=== PATIENT | male | born 1995 | race Caucasian/White ===

== ENCOUNTER 2018-08-12 11:12 | Emergency (ER) | payer SELFPAY ==
[2018-08-12 11:18] VITALS: BP 116/63
--- NOTE | 2018-08-12 11:55 | ER Document Report ---
HPI - HPI Pain Level: 5 Notes: Patient is a 22-year-old male with no significant past medical history aside from GERD who presents to the ED complaining of a fissure or ulceration inside of his left mouth over the last several days that he noticed bubbled up yesterday and drained. Patient states that it does hurt to eat because of that area. Patient states that when he does eat he has acid reflux that flares up on him. Patient states he is not on medications for acid reflux currently, but would like to be back on them. Patient states that his primary concern today is his mouth. He is otherwise urinating normally and having normal bowel movements. No other concerns or complaints. Denies any headache, fever, head injury, neck pain, URI, sore throat, chest pain, palpitations, syncope, cough, shortness of breath, wheeze, dyspnea, abdominal pain, nausea/vomiting/diarrhea, urinary retention, dysuria, hematuria, or rash. - ROS Systems Reviewed and Negative: Yes All other systems reviewed and negative Past Medical History - Social History Smoking Status: Current Every Day Smoker Family History: Reviewed & Not Pertinent Psychiatric Medical History: Reports: Hx Attention Deficit Hyperactivity Disorder, Hx Bipolar Disorder - Immunizations Immunizations up to date: Yes Hx Diphtheria, Pertussis, Tetanus Vaccination: Yes Vertical Provider Document - CONSTITUTIONAL Agree With Documented VS: Yes Notes: PHYSICAL EXAMINATION: GENERAL: Well-appearing, well-nourished and in no acute distress. HEAD: Atraumatic, normocephalic. EYES: Pupils equal round and reactive to light, extraocular movements intact, sclera anicteric, conjunctiva are normal. ENT: EAC clear b/l. TM's intact b/l without erythema, fluid, or perforation. Nares patent and without discharge. oropharynx clear without exudates. No tonsilar hypertrophy or erythema. Moist mucous membranes. No sinus tenderness. Uvula midline. No palatine shift. No tongue protrusion. No airway compromise. Mouth: Poor dentition. + either small fissure of aphthous ulcer noted to the posterior left buccal mucosal area. No obvious abscess or discharge noted. No facial swelling. No dental tenderness. NECK: Normal range of motion, supple without lymphadenopathy. No rigidity/ meningismus. LUNGS: Breath sounds clear to auscultation bilaterally and equal. No wheezes rales or rhonchi. HEART: Regular rate and rhythm without murmurs, rubs, gallops. Abdomen: Soft, nontender throughout, nondistended. Bowel sounds present. NEUROLOGICAL: Cranial nerves grossly intact. Normal speech, normal gait. Normal sensory, motor exams PSYCH: Normal mood, normal affect. SKIN: Warm, Dry, normal turgor, no rashes or lesions noted. Course - Re-evaluation Re-evalutation: 08/12/18 11:53 Patient is an afebrile, well-hydrated, 22-year-old male who presents to the ED with mouth fissure/aphthous ulcer. Vitals are acceptable without any significant tachycardia, tachypnea, or hypoxia. PE is otherwise unremarkable. Patient's abdomen is soft and nontender. His lungs are clear to auscultation bilaterally. Patient is nontoxic-appearing and is tolerating p.o. without any difficulties. Viscous lidocaine dispensed today. No labs or imaging warranted at this time. Low suspicion for any meningitis, sepsis, peritonsillar/ pharyngeal abscess, respiratory compromise, Gregorio's, temporal arteritis, or other emergent systemic condition at this time. Patient is aware this condition can change from initial presentation and he needs to monitor symptoms closely. I will send him home with a prescription for clindamycin, Carafate, omeprazole. He may begin the antibiotic with ongoing/worsening symptoms over the next 2-3 days. Conservative measures otherwise for symptoms. Recheck with your PCM in 3-5 days . Return to the ED with any worsening/concerning symptoms otherwise as reviewed in discharge. Patient is in agreement. - Vital Signs Vital signs: Temp Pulse Resp BP Pulse Ox 98.5 F 81 16 116/63 97 08/12/18 11:16 08/12/18 11:16 08/12/18 11:16 08/12/18 11:16 08/12/18 11:16 Discharge - Discharge Clinical Impression: Aphthous ulcer GERD (gastroesophageal reflux disease) Qualifiers: Esophagitis presence: esophagitis presence not specified Qualified Code(s): K21.9 - Gastro-esophageal reflux disease without esophagitis Condition: Stable Disposition: HOME, SELF-CARE Instructions: Reflux Disease (GERD) ([facility]) Additional Instructions: [place] and floss twice daily Maintain fluid intake Take antibiotics as directed Mouthwash, salt water gargles, peroxide rinse as needed Tylenol/ibuprofen as needed Recheck with PCM in 3-5 days Return to the ED with any worsening symptoms and/or development of fever, headache, facial swelling, swelling of lips/tongue/throat, trouble swallowing, drooling, hoarseness, neck pain/stiffness, chest pain, palpitations, syncope, shortness of breath, trouble breathing, abdominal pain, n/v/d, numbness/tingling , or other worsening symptoms that are concerning to you. Prescriptions: Clindamycin HCl [Cleocin 300 mg Capsule] 300 mg PO TID #30 capsule Omeprazole 20 mg PO DAILY #30 tablet. Sucralfate [Carafate] 1 gm PO QID PRN #420 ml PRN Reason: Forms: Smoking Cessation Education Referrals: [facility] [Provider Group] - Follow up as needed [facility] [Provider Group] - Follow up as needed
[2018-08-12] MEDS ORDERED: LIDOCAINE 2% VISCOUS SOLN 20 ML UDCUP PO ONE (11:57)
== END 2018-08-12 12:05 | disposition home or self-care (01) ==
LOC: ER 11:12
DX: K12.0 Recurrent oral aphthae (principal); K21.9 Gastro-esophageal reflux disease without esophagitis; F17.200 Nicotine dependence, unspecified, uncomplicated
CPT/HCPCS: 99282; J3490

== ENCOUNTER 2020-10-15 15:54 | Emergency (ER) | payer MEDICAID, OTHER ==
[2020-10-15] MEDS ORDERED: ACETAMINOPHEN 325 MG TABLET PO ONE (16:32)
--- NOTE | 2020-10-15 16:36 | ER Document Report ---
ED Medical Screen (RME) - General Chief Complaint: Fall Stated Complaint: FALL/RIGHT HAND,FINGERS,SHOULDER PAIN Time Seen by Provider: 10/15/20 16:25 - HPI Notes: 10/15/20 16:32 25-year-old male states he was putting on shingles on a roof yesterday, reports he fell story and a half onto the ground, injuring his right shoulder, his right wrist and right hand. He thinks he didn't lose consciousness, he is having some neck pain. Did not get checked out yesterday, thought it would get better with time. Patient states that his pain is getting worse, has not tried any [id number] medications. Denies any open wounds or drainage. Denies being on any blood thinners. Patient reports he has fallen 5 times from a roof, states this is the first time he has been checked out. Denies any neuro changes. Patient denies having a headache at this time. Denies any chest pain, shortness of breath, nausea vomiting or diarrhea. I have greeted and performed a rapid initial assessment of this patient. A comprehensive ED assessment and evaluation of the patient, analysis of test results and completion of the medical decision making process will be conducted by additional ED providers. PHYSICAL EXAMINATION: GENERAL: Well-appearing, well-nourished and in no acute distress. HEAD: Atraumatic, normocephalic. EYES: Pupils equal round extraocular movements intact, conjunctiva are normal. NECK: C-spine tenderness on palpation from C3-C6, right paraspinal tenderness CV: s1, s2 regular LUNGS: No respiratory distress Musculoskeletal: Normal range of motion. Noted right wrist pain with flexion, extension, inversion, eversion of wrist. Noted right fifth distal aspect of phalanx with dislocation d Unable to aviation safety officer on the right due to pain. Snuffbox tenderness positive on right. Tenderness to right shoulder on palpation, unable to abduct flex or extend without pain NEUROLOGICAL: Normal speech, normal gait. SKIN: Warm, Dry, normal turgor, no rashes or lesions noted. The patient was evaluated during a global COVID-19 pandemic and that diagnosis was suspected/considered upon their initial presentation. Their evaluation, treatment and testing was consistent with current guidelines for patients who present with complaints or symptoms and may be related to COVID-19. - Related Data Allergies/Adverse Reactions: hydrocodone bitartrate [From Vicodin] Allergy (Verified 08/12/18 11:13) Hives oxycodone HCl [From Percocet] Allergy (Verified 08/12/18 11:13) Hives propoxyphene napsylate [From Darvocet-N 100] Allergy (Verified 08/12/18 11:13) Hives Past Medical History - Social History Frequency of alcohol use: Occasional Drug Abuse: None Renal/ Medical History: Denies: Hx Peritoneal Dialysis Psychiatric Medical History: Reports: Hx Attention Deficit Hyperactivity Disorder, Hx Bipolar Disorder - Immunizations Immunizations up to date: Yes Hx Diphtheria, Pertussis, Tetanus Vaccination: Yes Physical Exam - Vital signs Vitals: Temp Pulse Resp BP Pulse Ox 98.2 F 71 20 115/62 98 10/15/20 16:07 10/15/20 16:07 10/15/20 16:07 10/15/20 16:07 10/15/20 16:07 Course - Vital Signs Vital signs: Temp Pulse Resp BP Pulse Ox 98.2 F 71 20 115/62 98 10/15/20 16:07 10/15/20 16:07 10/15/20 16:07 10/15/20 16:07 10/15/20 16:07
--- NOTE | 2020-10-15 17:32 | RADIOLOGY REPORT (SQ) ---
EXAM DESCRIPTION: CT HEAD WITHOUT IMAGES COMPLETED DATE/TIME: 10/15/2020 2:06 pm REASON FOR STUDY: fell from a 1.5 stories from a roof,head/neck/hand COMPARISON: None. TECHNIQUE: Axial images acquired through the brain without intravenous contrast. Images reviewed wi th bone, brain and subdural windows. Additional sagittal and coronal reconstructions were generated. Images stored on PACS. All CT scanners at this facility use dose modulation, iterative reconstruction, and/or weight based d osing when appropriate to reduce radiation dose to as low as reasonably achievable (ALARA). [facility]: Dose Right [facility]: CareDose [facility]: Dose Right [facility]: Teradose 4D [facility]: Smart [employer] RADIATION DOSE: CT Rad equipment meets quality standard of care and radiation dose reduction techniq ues were employed. CTDIvol: 53.2 mGy. DLP: 937 mGy-cm. mGy. LIMITATIONS: None. FINDINGS: VENTRICLES: Normal size and contour. CEREBRUM: No masses. No hemorrhage. No midline shift. No evidence for acute infarction. Normal gra y/white matter differentiation. No areas of low density in the white matter. CEREBELLUM: No masses. No hemorrhage. No alteration of density. No evidence for acute infarction. EXTRAAXIAL SPACES: No fluid collections. No masses. ORBITS AND GLOBE: No intra- or extraconal masses. Normal contour of globe without masses. CALVARIUM: No fracture. PARANASAL SINUSES: Mild mucosal thickening in the right frontal sinus. SOFT TISSUES: No mass or hematoma. OTHER: No other significant finding. IMPRESSION: 1. No acute intracranial abnormality. 2. Mild right frontal sinus mucosal thickening. EVIDENCE OF ACUTE STROKE: NO. COMMENT: Quality ID # [id number]: Final reports with documentation of one or more dose reduction techniques (e.g., Automated exposure control, adjustment of the mA and/or kV according to patient size, use of iterative reconstruction technique) TECHNICAL DOCUMENTATION: JOB ID: [id number] 2010 [employer]- All Rights Reserved Reading location - IP/workstation name: [email or web address]
--- NOTE | 2020-10-15 17:34 | RADIOLOGY REPORT (SQ) ---
EXAM DESCRIPTION: CT CERVICAL SPINE WITHOUT IMAGES COMPLETED DATE/TIME: 10/15/2020 2:06 pm REASON FOR STUDY: fell from a 1.5 stories from a roof,head/neck/hand COMPARISON: None. TECHNIQUE: Axial images acquired through the cervical spine without intravenous contrast. Images re viewed with lung, soft tissue and bone windows. Reconstructed coronal and sagittal MPR images review ed. Images stored on PACS. All CT scanners at this facility use dose modulation, iterative reconstruction, and/or weight based d osing when appropriate to reduce radiation dose to as low as reasonably achievable (ALARA). [facility]: Dose Right [facility]: CareDose [facility]: Dose Right [facility]: Teradose 4D [facility]: [employer] RADIATION DOSE: CT Rad equipment meets quality standard of care and radiation dose reduction techniq ues were employed. CTDIvol: 17.1 mGy. DLP: 358 mGy-cm. mGy. LIMITATIONS: None. FINDINGS: ALIGNMENT: Anatomic. MINERALIZATION: Normal. VERTEBRAL BODIES: No fractures or dislocation. DISCS: No significant disc disease. FACETS, LATERAL MASSES, POSTERIOR ELEMENTS: No fractures. No dislocation. No acute findings. HARDWARE: None in the spine. VISUALIZED RIBS: No fractures. LUNG APICES AND SOFT TISSUES: No significant or acute findings. OTHER: No other significant finding. IMPRESSION: NO ACUTE OR SIGNIFICANT FINDINGS IN THE CERVICAL SPINE. TECHNICAL DOCUMENTATION: JOB ID: [id number] Quality ID # [id number]: Final reports with documentation of one or more dose reduction techniques (e.g., Au tomated exposure control, adjustment of the mA and/or kV according to patient size, use of iterative reconstruction technique) 2010 [employer]- All Rights Reserved Reading location - IP/workstation name: [email or web address]
--- NOTE | 2020-10-15 17:56 | RADIOLOGY REPORT (SQ) ---
EXAM DESCRIPTION: HAND RIGHT 3 VIEWS; WRIST RIGHT 3 VIEWS IMAGES COMPLETED DATE/TIME: 10/15/2020 1:55 pm REASON FOR STUDY: fell from a 1.5 stories from a roof,head/neck/hand COMPARISON: None. EXAM PARAMETERS: NUMBER OF VIEWS: Three views. TECHNIQUE: AP, lateral and oblique radiographic images acquired of the right hand and right wrist. LIMITATIONS: None. FINDINGS: MINERALIZATION: Normal. BONES: No acute fracture or dislocation. No worrisome bone lesions. JOINTS: No effusions. SOFT TISSUES: No soft tissue swelling. No foreign body. OTHER: No other significant finding. IMPRESSION: No acute radiographic abnormality of the right wrist and right hand. TECHNICAL DOCUMENTATION: JOB ID: [id number] 2010 [employer]- All Rights Reserved Reading location - IP/workstation name: [email or web address]
--- NOTE | 2020-10-15 17:56 | RADIOLOGY REPORT (SQ) ---
EXAM DESCRIPTION: HAND RIGHT 3 VIEWS; WRIST RIGHT 3 VIEWS IMAGES COMPLETED DATE/TIME: 10/15/2020 1:55 pm REASON FOR STUDY: fell from a 1.5 stories from a roof,head/neck/hand COMPARISON: None. EXAM PARAMETERS: NUMBER OF VIEWS: Three views. TECHNIQUE: AP, lateral and oblique radiographic images acquired of the right hand and right wrist. LIMITATIONS: None. FINDINGS: MINERALIZATION: Normal. BONES: No acute fracture or dislocation. No worrisome bone lesions. JOINTS: No effusions. SOFT TISSUES: No soft tissue swelling. No foreign body. OTHER: No other significant finding. IMPRESSION: No acute radiographic abnormality of the right wrist and right hand. TECHNICAL DOCUMENTATION: JOB ID: [id number] 2010 [employer]- All Rights Reserved Reading location - IP/workstation name: [email or web address]
--- NOTE | 2020-10-15 17:59 | RADIOLOGY REPORT (SQ) ---
EXAM DESCRIPTION: SHOULDER RIGHT 2 OR MORE VIEWS IMAGES COMPLETED DATE/TIME: 10/15/2020 1:55 pm REASON FOR STUDY: fell from a 1.5 stories from a roof,head/neck/hand COMPARISON: None. NUMBER OF VIEWS: Three views. TECHNIQUE: Internal rotation, external rotation, and Y view images acquired of the right shoulder. LIMITATIONS: None. FINDINGS: MINERALIZATION: Normal. BONES: No acute fracture. No worrisome bone lesions. JOINTS: No dislocation. VISUALIZED LUNGS AND RIBS: No pneumothorax. No rib fracture. SOFT TISSUES: No radiopaque foreign body. OTHER: No other significant finding. IMPRESSION: NEGATIVE STUDY OF THE RIGHT SHOULDER. NO RADIOGRAPHIC EVIDENCE OF ACUTE INJURY. TECHNICAL DOCUMENTATION: JOB ID: [id number] 2010 [employer]- All Rights Reserved Reading location - IP/workstation name: [email or web address]
--- NOTE | 2020-10-15 19:32 | ER Document Report ---
ED Fall - General Chief Complaint: Fall Stated Complaint: FALL/RIGHT HAND,FINGERS,SHOULDER PAIN Time Seen by Provider: 10/15/20 16:25 - HPI Notes: Chief Complaint: Fall Historian: History obtained from patient HPI: This is a 25-year-old male presents to the ED after a fall off of a one- story roof yesterday. 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 Landed on right shoulder area using his right hand to brace himself. Did strike his head on the ground but no loss of consciousness. He was ambulatory after the fall. He complains of mild diffuse neck pain. Pain does not radiate down the arms. Denies numbness to bilateral upper extremities. His main complaint is right thumb pain and swelling. Also complains of some pain to the right fifth digit DIP. He also complains of some mild shoulder pain. No treatments tried. Denies severe headache, vision changes, confusion nausea vomiting. No chest pain, shortness of breath, abdominal pain, pelvic pain, back pain. ROS: Constitutional: no fevers. HEENT: no CRISTOBAL, sore throat, or vision changes. CV: no chest pain or palpitations. Resp: no cough or SOB. GI: no abdominal pain, or n/v/d. : no dysuria, hematuria, or incont. MSK: Cervical pain. Right shoulder pain. Right thumb pain. Right pinky finger pain. Skin: no rashes or itching. Neuro: no seizures, weakness, numbness, or confusion. Hematological: no ecchymosis or easy bleeding. Endocrine: no polyuria/polydipsia, no heat/cold intolerance. Psych: no SI/HI, AH/VH or memory loss. PMHx: Reviewed and agree as charted by RN. PSHx: Reviewed and agree as charted by RN. SOCHx: Reviewed and agree as charted by RN. FHX: No significant familial comorbid conditions directly related to patient complaint Current Medications: Reviewed and agree with the patient medications as charted by the RN. Allergies: Reviewed and agree with the listed allergies as charted by the RN Physical Exam: Vitals: Reviewed in chart as documented by RN. General: Alert and in NAD. Head: Normocephalic; atraumatic. Negative hemotympanums bilaterally. No otorrhea, rhinorrhea. No gross facial or scalp hematomas, abrasions, step-off. Face and scalp nontender to palpation.. Eyes: PERRLA, Conjunctivae clear sclerae non-icteric bilat ENT: no soft palate swelling or uvular deviation Neck: trachea midline, no unilateral swelling/tenderness/lymphadenopathy CV: RRR, no M/R/G; symmetric distal pulses Resp: respirations even and unlabored, CTA bilat. GI: abd soft and nondistended. NTTP. normal BS. no masses/HSM. no CVAT bilat MSK: Cervicaldiffuse mild tenderness. No midline step-off or deformity. Able to rotate beyond 45 degrees bilateral. Sensation intact to bilateral upper extremities distally. Strength 5 out of 5 and equal bilateral. Radial pulse 2+. Right shoulderAC, clavicle, sits muscles, shoulder joint all nontender to palpation. No swelling, erythema or deformity. Mild increased pain with range of motion especially overhead movement. Patient is able to abduct beyond 90 degrees, negative drop arm test. No obvious AC separation, no tenting, pallor/ischemia, open wounds. Full range of motion of right elbow and wrist, no swelling, tenderness, deformity. Right thumbmild tenderness over proximal phalanx without deformity. Trapezium and scaphoid area with mild swelling and ecchymosis, tender to palpation. Patient will stump in a neutral position and does not tolerate any range of motion. Patient refuses passive range of motion as well. Unable to assess thumb ligaments. Mild tenderness over the DIP of the fifth digit. Mild swelling. DIP is held in mild flexion pain with passive extension. Patient refuses to attempt to range joint due to pain. But no obvious deformity. Cap refill less than 2 seconds and sensation intact to all digits. Radial pulse 2+. No midline T-spine or L-spine tenderness or deformity. Straight leg raise negative bilateral. No saddle anesthesia. Sensation intact to bilateral lower extremities. Strength 5 out of 5 and equal to BLE. Pedal pulses 2+. No pelvic tenderness or deformity. Skin: warm, moist, good turgor. no rash/lesions Neuro: Alert and oriented X 4. following CN 2-12 intact. no unilateral weakness/numbness Psych: No SI/HI or AH/VH. ED Results: Medical Decision-Making: Medical Decision-making/Differential Diagnosis: Consider various etiologies including but not limited to ICH, skull fracture, mild TBI, closed head injury, cervical strain, disc herniation, compression fracture, cervical fracture, ligament injury, AC separation, rotator cuff injury, clavicle fracture, skin/soft tissue structure injury, MSK injury, strain/sprain, fracture, dislocation, bursitis, tendonitis, contusion, ect Plan-triage ordered CT head and C-spine, shoulder x-ra, right hand x-ray, right wrist x-ray. Patient clysed pain control in the ED. I reviewed imaging CT scans were negative for any acute findings. X-rays of the shoulder, hand, wrist were all negative as well. Due to patient's point tenderness, swelling, ecchymosis over his scaphoid/trapezium area and inability to range thumb due to pain I will place him in a thumb spica splint due to concern for possible occult scaphoid fracture or ligament injury to thumb. We will also place a finger splint on the right fifth digit. Treat with rice, Tylenol, NSAIDs. Orthopedics referral for follow-up of his right thumb and hand pain. Return factors discussed. PCP follow-up in the next few days for recheck. This course of action was discussed with the patient and/or family. They were amenable to this, verbalized understanding, and were without further questions. Diagnosis:fall, cervical strain, closed head injury, thumb sprain- right, 5th digit sprain- right. shoulder sprain- right. Condition: stable Disposition: discharge - Related data Allergies/Adverse Reactions: hydrocodone bitartrate [From Vicodin] Allergy (Verified 08/12/18 11:13) Hives oxycodone HCl [From Percocet] Allergy (Verified 08/12/18 11:13) Hives propoxyphene napsylate [From Darvocet-N 100] Allergy (Verified 08/12/18 11:13) Hives Past Medical History - Social History Smoking Status: Current Every Day Smoker Frequency of alcohol use: Occasional Drug Abuse: None Family History: Reviewed & Not Pertinent Renal/ Medical History: Denies: Hx Peritoneal Dialysis Psychiatric Medical History: Reports: Hx Attention Deficit Hyperactivity Disorder, Hx Bipolar Disorder - Immunizations Immunizations up to date: Yes Hx Diphtheria, Pertussis, Tetanus Vaccination: Yes Physical Exam - Vital signs Vitals: Temp Pulse Resp BP Pulse Ox 98.2 F 71 20 115/62 98 10/15/20 16:07 10/15/20 16:07 10/15/20 16:07 10/15/20 16:07 10/15/20 16:07 Course - Vital Signs Vital signs: Temp Pulse Resp BP Pulse Ox 98.2 F 71 20 115/62 98 10/15/20 16:07 10/15/20 16:07 10/15/20 16:07 10/15/20 16:07 10/15/20 16:07 - Laboratory Results Critical Laboratory Results Reviewed: No Critical Results - Radiology Results Critical Radiology Results Reviewed: No Critical Results Procedures - Immobilization Right Thumb Pre-Proc Neuro Vasc Exam: Normal Immobilizer type: Thumb spica Performed by: PCT Post-Proc Neuro Vasc Exam: Normal Right 5th digit Time completed: 19:34 Pre-Proc Neuro Vasc Exam: Normal Immobilizer type: Finger splint (Static) Performed by: PCT Post-Proc Neuro Vasc Exam: Normal Alignment checked and good: Yes Discharge - Discharge Clinical Impression: Other sprain of right shoulder joint, initial encounter, Other sprain of right thumb, initial encounter Fall Qualifiers: Encounter type: initial encounter Qualified Code(s): W19.XXXA - Unspecified fall, initial encounter Cervical strain, acute Qualifiers: Encounter type: initial encounter Qualified Code(s): S16.1XXA - Strain of muscle, fascia and tendon at neck level, initial encounter Sprain of right little finger Qualifiers: Encounter type: initial encounter Sprain of finger site: interphalangeal joint Qualified Code(s): S63.636A - Sprain of interphalangeal joint of right little finger, initial encounter Closed head injury Qualifiers: Encounter type: initial encounter Qualified Code(s): S09.90XA - Unspecified injury of head, initial encounter Condition: Stable Disposition: HOME, SELF-CARE Instructions: Head Injury Precautions ([facility]), Sprained Thumb ([facility]) Additional Instructions: call and schedule appointment with orthopedics- they need to further evaluate your thumb/hand injury as you may have serious ligament injuries. wear splint at all times. no heavy lifting w/ thumb. rest, ice, and elevate injured areas. follow up with your doctor in the next couple days for a recheck. return to the ER if your condition worsens. take tylenol and motrin for pain. Referrals: SALUD AUGUSTIN MD [ASSOCIATE] - Follow up as needed
[2020-10-15] MEDS ORDERED: HYDROCODONE/ACETAMINOPHEN 5-325 MG (6 TAB/ER DISP) PO PRN (20:15)
[2020-10-15 20:34] VITALS: BP 118/72
== END 2020-10-15 20:29 | disposition home or self-care (01) ==
LOC: ER 15:54
DX: S63.601A Unspecified sprain of right thumb, initial encounter (principal); S16.1XXA Strain of muscle, fascia and tendon at neck level, initial encounter; S63.636A Sprain of interphalangeal joint of right little finger, initial encounter; S09.90XA Unspecified injury of head, initial encounter; S43.401A Unspecified sprain of right shoulder joint, initial encounter; W13.2XXA Fall from, out of or through roof, initial encounter; Y93.H3 Activity, building and construction; F17.200 Nicotine dependence, unspecified, uncomplicated; Z88.6 Allergy status to analgesic agent; Z88.5 Allergy status to narcotic agent
CPT/HCPCS: 70450; 72125; 99284